=== PATIENT | female | born 1965 | race Caucasian/White ===

== ENCOUNTER 2021-06-14 00:33 | Day surgery (SDC) | payer BC, SELFPAY ==
[2021-06-06 15:49] VITALS: BMI 32.0
--- NOTE | 2021-06-13 13:09 | PM.HPGS ---
History of Present Illness History of Present Illness Consent: Risks, benefits, and alternatives have been discussed and questions answered. Patient agrees to proceed with procedure. Chief complaint: neoplasm screening Narrative: Alvina Mckinley is a 55 year old female who was referred for colon cancer screening. her mother had pancreatic cancer and polyps Review of Systems Review of Systems: All systems reviewed & are unremarkable except as noted in HPI and below PMFSH Family History Family History Other Family history of arthritis Family history of malignant neoplasm of breast in first degree relative Social History Social History Smoking packs per day: 0.5 Smoking cigarettes per day: 10.0 Years smoked: 10 Smoking pack-years: 5.00 Smoking status: Former smoker Tobacco type: cigarettes Second hand tobacco smoke exposure: No Alcohol intake: never Substance use: never Substance use type: does not use Living arrangements: with family Spiritual care concerns: No Meds Home Medications and Allergies Home Medications Medication Instructions Recorded Confirmed Type fluoxetine 20 mg capsule See Rx Instructions .ROUTE 02/16/20 06/14/21 Rx .COMPLEX #90 each levothyroxine 25 mcg tablet See Rx Instructions .ROUTE 06/14/20 06/14/21 Rx .COMPLEX #30 each ropinirole 0.5 mg tablet See Rx Instructions .ROUTE 09/10/20 06/14/21 Rx .COMPLEX #30 each cholecalciferol (vitamin D3) 25 mcg PO DAILY 06/06/21 06/14/21 History [Vitamin D3] Allergies Allergy/AdvReac Type Severity Reaction Status Date / Time No Known Allergies Allergy Verified 06/14/21 08:13 Exam Resp: Auscultation: clear to auscultation bilaterally Cardio: Rate: regular rate Rhythm: regular rhythm GI: GI Palp: Yes Soft to palpation and No Tenderness to palpation present (GI) Assessment and Plan Assessment and plan (1) Colon cancer screening: Code(s): Z12.11 - Encounter for screening for malignant neoplasm of colon Status: Acute Assessment and Plan: Colonoscopy with possible biopsy or polypectomy or cautery or injection of substances.
[2021-06-14 08:14] VITALS: BP 123/101; PULSE 120; RESP 20; TEMP 36.9; O2SAT 98; BMI 32.2
[2021-06-14] MEDS: LACTATED RINGERS 1,000 ML 150 ML IV CONT (08:18)
--- NOTE | 2021-06-14 08:32 | P.PNAN_ITS ---
Anes - Initial Pre Proc Eval Procedure: Operation Date: 06/14/21 09:00 Proposed Procedures p Screening Colonoscopy - Zana Adamson MD Date/Time: 06/14/21 08:32 Surgeon: Zana Adamson MD Pre Op Diagnosis: neoplasm screening Patient Data Age: 55 Gender: F Height: 1.57 m Weight: 79.9 kg Last Vital Signs Temp 98.5 F 06/14/21 08:14 Pulse 120 H 06/14/21 08:14 Resp 20 06/14/21 08:14 BP 123/101 H 06/14/21 08:14 Pulse Ox 98 06/14/21 08:14 Allergies Allergy/AdvReac Type Severity Reaction Status Date / Time No Known Allergies Allergy Verified 06/14/21 08:13 Home Medications Medication Instructions Recorded Confirmed Type fluoxetine 20 mg capsule See Rx Instructions .ROUTE 02/16/20 06/14/21 Rx .COMPLEX #90 each levothyroxine 25 mcg tablet See Rx Instructions .ROUTE 06/14/20 06/14/21 Rx .COMPLEX #30 each ropinirole 0.5 mg tablet See Rx Instructions .ROUTE 09/10/20 06/14/21 Rx .COMPLEX #30 each cholecalciferol (vitamin D3) 25 mcg PO DAILY 06/06/21 06/14/21 History [Vitamin D3] Patient hx anesthesia problems: none Family hx anesthesia problems: none Results Review: All pre-operative results and documents have been reviewed as part of the pre-operative evaluation. [facility] Family History Family History Other Family history of arthritis Family history of malignant neoplasm of breast in first degree relative Social History Social History Smoking packs per day: 0.5 Smoking cigarettes per day: 10.0 Years smoked: 10 Smoking pack-years: 5.00 Smoking status: Former smoker Tobacco type: cigarettes Second hand tobacco smoke exposure: No Alcohol intake: never Substance use: never Substance use type: does not use Living arrangements: with family Spiritual care concerns: No Anes - Eval Final PreProcedure Day of Procedure 06/14/21 08:32 Patient weight: obese Heart: regular rate and rhythm Lungs: clear to auscultation Airway: Mallampati scale class II Neurological: alert and oriented Last oral intake: >/= 8 hours ASA classification: II Emergent: no Anesthetic plan: proceed Anesthesia type and monitoring: general GIVS and standard monitoring Results Review: All pre-operative results and documents have been reviewed as part of the pre-operative evaluation. Informed Consent: The patient's anesthetic plan and its attendant risks and benefits were discussed with the patient/family/POA. Questions were solicited and answers provided to the satisfaction of the patient/family/POA.
[2021-06-14 09:20] VITALS: BP 101/58; PULSE 89; RESP 20; O2SAT 97
[2021-06-14 09:30] VITALS: BP 106/71; PULSE 93; RESP 21; O2SAT 98
[2021-06-14 09:40] VITALS: BP 111/74; PULSE 91; RESP 29; O2SAT 100
== END 2021-06-14 09:41 | disposition home or self-care (01) ==
PROVIDERS: PCP Physician Assistant; Visit Provider Internal Medicine Gastroenterology
PROC: 0DJD8ZZ Inspection of Lower Intestinal Tract, Via Natural or Artificial Opening Endoscopic (ICD-10-PCS; CPT 45378; principal; 2021-06-14 09:00)
DX: Z12.11 Encounter for screening for malignant neoplasm of colon (principal); K62.1 Rectal polyp; Z87.891 Personal history of nicotine dependence; E66.9 Obesity, unspecified; Z68.32 Body mass index [BMI] 32.0-32.9, adult
CPT/HCPCS: 45380; 88305; J2704; J7120

== ENCOUNTER 2021-08-05 11:00 | Emergency (ER) | payer BC, SELFPAY ==
--- NOTE | 2021-08-05 11:04 | ED.URI ---
HPI - URI/Sore Throat General Chief Complaint: Upper Respiratory Infection Stated Complaint: sinus cough drainage Time Seen by Provider: 08/05/21 11:04 Source: patient and RN notes reviewed History of Present Illness HPI Narrative: Patient is a 56-year-old female who presents the urgent care with complaints of severe sinus drainage, pressure and cough. Patient states that when she lays down at night she feels that she is having coughing fits from the excessive drainage. Patient states she is been sick for approximately 2 weeks after traveling to [place]. States that her PCP put her on azithromycin and her last dose was this morning. Patient states that her symptoms are not much better . Patient denies of any fevers, shortness of breath. No other acute complaints. Patient states she has been taking a daily Yahaira. No acute distress noted. Patient aware of the plan of care. Some parts of this dictation were generated by voice recognition software and may contain typographical and/or grammatical inaccuracies. Related Data Home Medications Medication Instructions Recorded Confirmed cholecalciferol (vitamin D3) 25 50 mcg PO DAILY tablet 06/26/21 06/26/21 mcg (1,000 unit) tablet azithromycin See Rx Instructions .ROUTE .COMPLEX 08/05/21 08/05/21 Allergies Allergy/AdvReac Type Severity Reaction Status Date / Time No Known Allergies Allergy Verified 06/26/21 09:56 Review of Systems Review of Systems: CONSTITUTIONAL: Denies fever, chills, or sweats. EYES: Denies visual changes, redness, or discharge. ENT: Reports of sinus drainage, nasal congestion CARDIOVASCULAR: Denies chest pain, palpitations, or edema. RESPIRATORY: Reports of cough without dyspnea GASTROINTESTINAL: Denies abdominal pain, nausea, vomiting, or diarrhea. GENITOURINARY: Denies dysuria or hematuria. SKIN: Denies rash or itching. MUSCULOSKELETAL: Denies back pain, joint pain, or myalgia. NEUROLOGIC: Denies headache, numbness, or weakness. All other systems reviewed are negative, except as documented in HPI. [facility] Past Medical History Medical History Abnormal cervical Papanicolaou smear 04/18/21 ASCUS, HPV pos Anxiety Hypothyroidism Migraine Surgical History Surgical History H/O bilateral breast reduction surgery History of breast biopsy 2002 History of colposcopy 2002 History of loop electrical excision procedure (LEEP) 2002 Previous section x1 [place] teeth extracted 1979 Family History Family History Father Anxiety and depression Cerebrovascular accident Mother Breast cancer Dx in late 60s Pancreatic cancer Diabetes mellitus Anxiety and depression Thyroid disorder Social History Social History (Updated 06/26/21 @ 10:01 by Kiki Haywood CMA) Smoking status: Former smoker Tobacco type: cigarettes Second hand tobacco smoke exposure: No Alcohol intake: never Substance use: never Spiritual care concerns: No Agree to blood products: Yes Comments At the time of my signature, I reviewed and agree with the nursing past medical, surgical, social, and family history. There is no relevant family history pertinent to the patient complaint. Exam Narrative: GENERAL: This is a well-nourished, well-developed patient, in no apparent distress. HEAD: normocephalic, atraumatic. Frontal sinus tenderness EYES: PERRL. Sclera clear/white. Vision is grossly intact. EARS: External ears normal, auditory canals clear and without drainage, TMs normal without perforation. Hearing grossly intact. NOSE: External nose normal with no obvious nasal discharge, nares without redness, clear rhinorrhea. THROAT: Mucous membranes moist, posterior pharynx clear. Moderate postnasal drainage NECK: Neck supple, non-tender without ly
[2021-08-05 11:09] VITALS: BP 145/88; PULSE 86; RESP 18; TEMP 36.6; O2SAT 98
== END 2021-08-05 11:35 | disposition home or self-care (01) ==
PROVIDERS: Emergency Provider Nurse Practitioner Family; PCP Physician Assistant
DX: J32.9 Chronic sinusitis, unspecified (principal); Z87.891 Personal history of nicotine dependence; E03.9 Hypothyroidism, unspecified; F41.9 Anxiety disorder, unspecified
CPT/HCPCS: 99211; G0463